=== PATIENT | male | born 1980 | race American Indian/Alaskan Native ===

== ENCOUNTER 2019-03-16 14:56 | Emergency (ER) | payer SELFPAY ==
[2019-03-16] MEDS ORDERED: TORADOL IV ONE (15:33)
[2019-03-16] MEDS ORDERED: ZOFRAN IV ONE (15:33)
[2019-03-16] MEDS ORDERED: NACL 0.9% 1000 ML 1,000 ML IV ONE (15:33)
[2019-03-16 15:52] LABS: Basophils % (Auto) 0.2 % (0.0-1.8); Hematocrit 47.6 % (35.5-45.6); Hemoglobin 15.9 gm/dl (11.8-15.2); Lymphocytes # (Auto) 0.6 K/mm3 (1.2-5.4); Lymphocytes % (Auto) 5.9 % (13.4-35.0); Mean Corpuscular HGB Conc 34 % (32-34); Mean Corpuscular Volume 98 fl (84-94); Monocytes # (Auto) 0.7 K/mm3 (0.0-0.8); Platelet Count 209 K/mm3 (140-440); Red Blood Count 4.85 M/mm3 (3.65-5.03); Red Cell Distribution Width 13.6 % (13.2-15.2)
[2019-03-16 16:14] LABS: Bilirubin,Urine NEG (Negative); Color,Urine Yellow (Yellow)
[2019-03-16 16:15] LABS: Amorphous Crystals,Urine Few; Blood,Urine NEG (Negative); Mucus,Urine FEW /HPF
[2019-03-16 16:25] LABS: Alanine Aminotransferase 26 units/L (7-56); Albumin 4.4 g/dL (3.9-5); BUN/Creatinine Ratio 9; Blood Urea Nitrogen 10 mg/dL (9-20); Calcium 9.3 mg/dL (8.4-10.2); Hemolysis Index 23
--- NOTE | 2019-03-16 16:51 | Emergency Department Report ---
ED Abdominal Pain HPI - General Chief Complaint: Abdominal Pain Stated Complaint: STOMACH PAIN Time Seen by Provider: 03/16/19 15:21 Source: patient Mode of arrival: Ambulatory Limitations: No Limitations - History of Present Illness MD Complaint: abdominal pain -: Gradual, days(s) (1) Location: RLQ Radiation: none Migration to: no migration Severity: moderate Severity scale (0 -10): 4 Quality: aching Consistency: constant Improves With: nothing Worsens With: nothing Associated Symptoms: nausea. denies: vomiting, diarrhea, fever, chills, constipation, dysuria, hematemesis, hematochezia, melena, hematuria, anorexia, syncope - Related Data Previous Rx's Medication Instructions Recorded Last Taken Type Ibuprofen [Motrin 600 MG tab] 600 mg PO Q6H PRN #24 tablet 03/16/19 Unknown Rx Allergies Allergy/AdvReac Type Severity Reaction Status Date / Time No Known Allergies Allergy Unverified 03/16/19 14:57 ED Review of Systems ROS: Stated complaint: STOMACH PAIN Other details as noted in HPI Other: GENERAL: No weight change, fatigue, fever, chills, or night sweats SKIN: No changes in skin or hair, no itching, no rashes, no jaundice HEAD: No trauma, headache, or visual changes EYES: No blurriness, tearing, itching, acute visual loss, conjunctival discoloration, or scleral icterus EARS: No hearing loss, tinnitus, vertigo, or earache NOSE: No rhinorrhea, stuffiness, sneezing, itching, or epistaxis MOUTH: No bleeding gums, hoarseness, sore throat, or swelling CARDIAC: No new murmur, chest pain, palpitations, dyspnea on exertion, orthopnea, PND, or edema RESPIRATORY: No shortness of breath, wheeze, cough, sputum production, hemoptysis, pneumonia, asthma, bronchitis, or emphysema GI: Abdominal pain, nausea. No vomiting, dysphagia, diarrhea, constipation, hematemesis, melena, hematochezia URINARY: No frequency, urgency, polyuria, dysuria, hematuria, or incontinence MUSCULOSKELETAL: No muscle weakness, joint stiffness, decrease in range of motion, redness, swelling NEUROLOGIC: No headache, loss of sensation, numbness, tingling, tremors, weakness, paralysis, seizures HEMATOLOGIC: No anemia, easy bruising, bleeding, petechiae, or purpura ENDOCRINE: No hot or cold intolerance, sweating, polyuria, polydipsia or, polyphagia no thyroid problems PSYCHIATRIC: No change in mood, no anxiety, no depression ED Past Medical Hx - Past Medical History Previous Medical History?: No Hx Asthma: No - Surgical History Past Surgical History?: No - Social History Smoking Status: Current Every Day Smoker Substance Use Type: Alcohol - Medications Home Medications: Home Medications Medication Instructions Recorded Confirmed Last Taken Type Ibuprofen [Motrin 600 MG tab] 600 mg PO Q6H PRN #24 tablet 03/16/19 Unknown Rx ED Physical Exam - General Limitations: No Limitations - Other Other exam information: GENERAL: Patient in no acute distress HEAD: Normocephalic, atraumatic EYES: PERRLA, EOM intact, no scleral icterus, no conjunctival hemorrhage, visual zuniga and acuity wnl NOSE: No tenderness, discharge, sinus tenderness MOUTH: No erythema, bleeding, exudate HEART: Regular rate and rhythm, no murmur, S1-S2 are auscultated, pulses are symmetric LUNGS: No respiratory distress. Bilateral breath sounds, No tachypnea, No retractions, No wheezing, rales, rhonchi ABDOMEN: Mild tenderness RLQ. Normal bowel sounds, abdomen soft, no rebound, no guarding, no distention, no masses, no CVA tenderness MUSCULOSKELETAL: Normal joint range of motion, no redness, no swelling, no tenderness NEUROLOGIC: GCS 15, Alert and Oriented x3, Cranial nerves intact, normal sensation, normal strength, no cerebellar deficit, NIHSS 0 PSYCHIATRIC: No homicidal or suicidal ideation, no anxiety, no depression, no hallucinations SKIN: Skin is warm and dry, no wounds, no rashes ED Course Vital Signs 03/16/19 03/16/19 03/16/19 15:01 15:45 15:55 Temperature 98.8 F Pulse Rate 71 Respiratory 16 19 19 Rate Blood Pressure 127/81 O2 Sat by Pulse 98 Oximetry ED Medical Decision Making - Lab Data Result diagrams: 03/16/19 15:42 03/16/19 15:42 Laboratory Results - last 24 hr 03/16/19 03/16/19 03/16/19 15:42 15:42 15:42 WBC 9.4 RBC 4.85 Hgb 15.9 H Hct 47.6 H MCV 98 H MCH 33 H MCHC 34 RDW 13.6 Plt Count 209 Lymph % (Auto) 5.9 L [place] % (Auto) 7.0 Eos % (Auto) 0.0 Baso % (Auto) 0.2 Lymph # 0.6 L [place] # 0.7 Eos # 0.0 Baso # 0.0 Seg Neutrophils % 86.9 H Seg Neutrophils # 8.2 H Sodium 140 Potassium 4.2 Chloride 100.6 Carbon Dioxide 28 Anion Gap 16 BUN 10 Creatinine 1.1 Estimated GFR > 60 BUN/Creatinine Ratio 9 Glucose 116 H Calcium 9.3 Total Bilirubin 0.70 AST 23 ALT 26 Alkaline Phosphatase 59 Total Protein 7.9 Albumin 4.4 Albumin/Globulin Ratio 1.3 Lipase 12 L Urine Color Urine Turbidity Urine pH Ur Specific [place] Urine Protein Urine Glucose (UA) Urine Ketones Urine Blood Urine Nitrite Urine Bilirubin Urine Urobilinogen Ur Leukocyte Esterase Urine WBC (Auto) Urine RBC (Auto) Amorphous Crystals Urine Mucus 03/16/19 15:45 WBC RBC Hgb Hct MCV MCH MCHC RDW Plt Count Lymph % (Auto) [place] % (Auto) Eos % (Auto) Baso % (Auto) Lymph # [place] # Eos # Baso # Seg Neutrophils % Seg Neutrophils # Sodium Potassium Chloride Carbon Dioxide Anion Gap BUN Creatinine Estimated GFR BUN/Creatinine Ratio Glucose Calcium Total Bilirubin AST ALT Alkaline Phosphatase Total Protein Albumin Albumin/Globulin Ratio Lipase Urine Color Yellow Urine Turbidity Cloudy Urine pH 7.0 Ur Specific [place] 1.028 Urine Protein 30 mg/dl Urine Glucose (UA) Neg Urine Ketones 20 Urine Blood Neg Urine Nitrite Neg Urine Bilirubin Neg Urine Urobilinogen 4.0 Ur Leukocyte Esterase Neg Urine WBC (Auto) 1.0 Urine RBC (Auto) 4.0 Amorphous Crystals Few Urine Mucus Few - Radiology Data Radiology results: report reviewed - Medical Decision Making Patient comfortable. Updated with results. Plan discharge with outpatient follow up. Return if any worsening. Critical care attestation.: If time is entered above; I have spent that time in minutes in the direct care of this critically ill patient, excluding procedure time. ED Disposition Clinical Impression: Abdominal pain Qualifiers: Abdominal location: unspecified location Qualified Code(s): R10.9 - Unspecified abdominal pain Disposition: - TO HOME OR SELFCARE Is pt being admited?: No Condition: Stable Instructions: Acute Abdominal Pain (ED) Prescriptions: Ibuprofen [Motrin 600 MG tab] 600 mg PO Q6H PRN #24 tablet PRN Reason: Pain Referrals: [facility] [Outside] - 2-3 Days Time of Disposition: 17:12
--- NOTE | 2019-03-16 17:06 | Cat Scan Report ---
CT ABDOMEN AND PELVIS WITH CONTRAST INDICATION: Mid abdominal pain radiating to back. COMPARISON: No relevant prior imaging study available. TECHNIQUE: Axial, coronal and sagittal CT imaging of the abdomen and pelvis was performed after inje ction of 100 mL Isovue [address] scans at this location are performed using CT dose reduc tion for ALARA by means of automated exposure control. FINDINGS: LOWER CHEST: No significant abnormality. LIVER: No significant abnormality. BILIARY: No significant abnormality. PANCREAS: No significant abnormality. SPLEEN: No significant abnormality. ADRENALS: No significant abnormality. KIDNEYS AND URETERS: No significant abnormality. GI TRACT: No significant abnormality of the stomach, small bowel or colon. Unremarkable appendix. PERITONEUM: No free fluid. No free air. No fluid collection. LYMPH NODES: No significant adenopathy. VASCULATURE: No significant abnormality. URINARY BLADDER: No significant abnormality. REPRODUCTIVE ORGANS: No significant abnormality. ADDITIONAL FINDINGS: None. SKELETAL SYSTEM: No significant abnormality. IMPRESSION: No acute abnormality of the abdomen or pelvis. Signer Name: Mitchell Hines MD Signed: 03/16/2019 5:02 PM Workstation Name: [id number]
[2019-03-16 17:22] VITALS: BP 120/84
== END 2019-03-16 17:21 | disposition home or self-care (01) ==
LOC: ED 14:56
DX: R10.31 Right lower quadrant pain (principal); R11.0 Nausea; F17.200 Nicotine dependence, unspecified, uncomplicated
CPT/HCPCS: 36415; 74177; 80053; 81001; 83690; 85025; 96361; 96374; 96375; 99284; J1885; J2405; J7030; Q9967

== ENCOUNTER 2019-06-30 00:04 | Emergency (ER) | payer SELFPAY ==
[2019-06-30 00:14] VITALS: BP 128/79
[2019-06-30] MEDS ORDERED: traMADol 50 MG TAB PO ONE (01:00)
--- NOTE | 2019-06-30 03:46 | Emergency Department Report ---
ED Back Pain/Injury HPI - General Chief Complaint: Back Pain/Injury Stated Complaint: BACK PAIN Time Seen by Provider: 06/30/19 00:59 Source: patient Limitations: No Limitations - History of Present Illness Initial Comments: pt is s 39 y/o aam who presents low back pain radiating right posterior thigh x 3 days , pt denies fall or trauma. he does recall bending ackwardly and back pain began soon after. pain is described as aching burning 5/10. pain is exacerbated by movement being and twisting pain is relieved by rest and offloading, there is no numbness no tingling no loss or decrease in bowel or bladder function. MD Complaint: back pain, back injury Onset/Timin -: days(s) Similar Symptoms Previously: Yes Place: home Radiation: right leg Severity: moderate Severity scale (0 -10): 5 Quality: burning, aching Consistency: intermittent Improves With: other (rest ) Worsens With: movement Context: bending Associated Symptoms: denies: weakness, numbness, difficulty walking, difficulty urinating, incontinence, fever/chills, constipation, headaches, nausea/vomiting - Related Data Previous Rx's Medication Instructions Recorded Last Taken Type Ibuprofen [Motrin 600 MG tab] 600 mg PO Q6H PRN #24 tablet 03/16/19 Unknown Rx Cyclobenzaprine [Flexeril] 10 mg PO TID PRN #30 tablet 06/30/19 Unknown Rx Menthol/Camphor [[place] 1 applicatio TP QID PRN #1 tube 06/30/19 Unknown Rx Ointment] Naproxen [Naprosyn] 500 mg PO BID PRN #30 tablet 06/30/19 Unknown Rx Allergies Allergy/AdvReac Type Severity Reaction Status Date / Time No Known Allergies Allergy Unverified 03/16/19 14:57 ED Review of Systems ROS: Stated complaint: BACK PAIN Other details as noted in HPI Constitutional: denies: chills, fever Eyes: denies: eye pain, eye discharge, vision change ENT: denies: ear pain, throat pain Respiratory: denies: cough, shortness of breath, wheezing Cardiovascular: denies: chest pain, palpitations Endocrine: no symptoms reported Gastrointestinal: denies: abdominal pain, nausea, diarrhea Genitourinary: denies: urgency, dysuria Musculoskeletal: back pain, arthralgia, myalgia. denies: joint swelling Skin: denies: rash, lesions Neurological: as per HPI Psychiatric: denies: anxiety, depression Hematological/Lymphatic: denies: easy bleeding, easy bruising ED Past Medical Hx - Past Medical History Previous Medical History?: No Hx Asthma: No - Surgical History Past Surgical History?: No - Social History Smoking Status: Current Every Day Smoker Substance Use Type: Marijuana - Medications Home Medications: Home Medications Medication Instructions Recorded Confirmed Last Taken Type Ibuprofen [Motrin 600 MG tab] 600 mg PO Q6H PRN #24 tablet 03/16/19 Unknown Rx Cyclobenzaprine [Flexeril] 10 mg PO TID PRN #30 tablet 06/30/19 Unknown Rx Menthol/Camphor [[place] 1 applicatio TP QID PRN #1 tube 06/30/19 Unknown Rx Ointment] Naproxen [Naprosyn] 500 mg PO BID PRN #30 tablet 06/30/19 Unknown Rx ED Physical Exam - General Limitations: No Limitations General appearance: alert, in no apparent distress - Head Head exam: Present: atraumatic, normocephalic - Eye Eye exam: Present: normal appearance, PERRL, EOMI Pupils: Present: normal accommodation - ENT ENT exam: Present: mucous membranes moist - Neck Neck exam: Present: normal inspection, full ROM. Absent: tenderness, meningismus, lymphadenopathy, thyromegaly - Respiratory Respiratory exam: Present: normal lung sounds bilaterally. Absent: respiratory distress, wheezes, stridor, chest wall tenderness - Cardiovascular Cardiovascular Exam: Present: regular rate, normal rhythm, normal heart sounds. Absent: systolic murmur, diastolic murmur, rubs, gallop - GI/Abdominal GI/Abdominal exam: Present: soft, normal bowel sounds. Absent: distended, tenderness, guarding, rebound, rigid, bruit, hernia - Rectal Rectal exam: Present: deferred - Extremities Exam Extremities exam: Present: normal inspection, full ROM, normal capillary refill. Absent: tenderness - Back Exam Back exam: Present: normal inspection, full ROM, tenderness (no posterior vertebral point tenderness, mild paraspinus muscle tenderness to deep palpation.), muscle spasm, paraspinal tenderness. Absent: CVA tenderness (R), CVA tenderness (L), vertebral tenderness, rash noted - Expanded Back Exam Expanded Back exam: Absent: saddle anesthesia Back exam: Positive Straight Leg Raise: Right, Negative Straight Leg Raising: Left - Neurological Exam Neurological exam: Present: alert, oriented X3, CN II-XII intact, normal gait, reflexes normal. Absent: motor sensory deficit - Psychiatric Psychiatric exam: Present: normal affect, normal mood - Skin Skin exam: Present: warm, dry, intact, normal color. Absent: rash ED Course Vital Signs 06/30/19 06/30/19 00:08 01:32 Temperature 98.5 F Pulse Rate 82 Respiratory 18 20 Rate Blood Pressure 128/79 O2 Sat by Pulse 100 Oximetry ED Medical Decision Making - Medical Decision Making this is a low back strain, plan nsaids, muscle relaxant, analgesic balm, moist heat therapy follow up with pcp in 2-3 days return to ed if symptoms worsen. pt verbalized agreement and understanding of discharge plan. Critical care attestation.: If time is entered above; I have spent that time in minutes in the direct care of this critically ill patient, excluding procedure time. ED Disposition Clinical Impression: Low back strain Qualifiers: Encounter type: initial encounter Qualified Code(s): S39.012A - Strain of muscle, fascia and tendon of lower back, initial encounter Disposition: DC- TO HOME OR SELFCARE Is pt being admited?: No Does the pt Need Aspirin: No Condition: Stable Instructions: Low Back Strain (ED), Core Strengthening Exercises (GEN) Prescriptions: Cyclobenzaprine [Flexeril] 10 mg PO TID PRN #30 tablet PRN Reason: Muscle Spasm Naproxen [Naprosyn] 500 mg PO BID PRN #30 tablet PRN Reason: pain Menthol/Camphor [[place] Ointment] 1 applicatio TP QID PRN #1 tube PRN Reason: pain Referrals: BRITTANY DALTON MD [Primary Care Provider] - 3-5 Days Forms: Work/School Release Form(ED)
== END 2019-06-30 03:45 | disposition home or self-care (01) ==
LOC: ED 00:04
DX: S39.012A Strain of muscle, fascia and tendon of lower back, initial encounter (principal); F17.200 Nicotine dependence, unspecified, uncomplicated; F12.10 Cannabis abuse, uncomplicated; X58.XXXA Exposure to other specified factors, initial encounter; Y93.89 Activity, other specified; Y92.89 Other specified places as the place of occurrence of the external cause; Y99.8 Other external cause status